=== PATIENT | male | born 1990 | race African-American/Black ===

== ENCOUNTER 2019-05-09 04:48 | Emergency (ER) | payer SELFPAY ==
--- NOTE | ~2019-05-09 | CT_ITS ---
EXAMINATION: CT brain wo con DATE: 05/09/2019 06:26 INDICATION: Headache. TECHNIQUE: Computed tomography (CT) of the head was performed without intravenous contrast. The mA wa s adjusted according to patient size. Iterative reconstruction technique was employed. The dose-lengt h product was 605.33 mGy-cm. COMPARISON: None FINDINGS: There is no intracranial hemorrhage, acute infarction, or abnormal intracranial mass lesion . The ventricles are normal in size. There is mild mucosal thickening in the ethmoid sinuses. The mas toid air cells are normal. The orbits are normal. IMPRESSION: 1. Normal brain. Reviewed, dictated and finalized at location [facility]. [facility] IMPRESSION: 1. Normal brain.
[2019-05-09 04:59] VITALS: BP 139/82; PULSE 68; RESP 16; TEMP 36.9; O2SAT 100
--- NOTE | 2019-05-09 05:15 | ED.HA ---
HPI - Headache General Chief Complaint: Headache Stated Complaint: HICKS Time Seen by Provider: 05/09/19 04:49 Source: patient Mode of arrival: ambulatory Limitations: no limitations History of Present Illness HPI Narrative: Patient is a 28-year-old male who presents for evaluation of headache. Patient reports headache began 4 days ago Wednesday while he was lying on his couch. Patient states that the headache started as a dull, aching pain in the back of his head radiating to the front above his eyes, and now is focused mostly in his left eye. Pain is dull, aching in nature, sometimes sharp at times. He reports intermittent blurry vision, nausea without vomiting, sensitivity to light. Patient has a history of migraine headaches in the past, but has never received head imaging. He denies numbness, does report some mild difficulty with walking due to dizziness. No chest pain, palpitations or abdominal pain. No recent medication changes. Patient denies taking any medication at home for the pain. Related Data Allergies Allergy/AdvReac Type Severity Reaction Status Date / Time No Known Allergies Allergy Verified 05/09/19 05:24 Review of Systems Review of Systems: Narrative: CONSTITUTIONAL: Denies fever, chills. EYES: Intermittent blurry vision, no blurry vision currently ENT: Reports rhinorrhea today, mild sinus congestion, denies sore throat or ear pain CARDIOVASCULAR: Denies chest pain, palpitations, or edema. RESPIRATORY: Denies cough or dyspnea. GASTROINTESTINAL: Denies abdominal pain, reports nausea, denies vomiting or diarrhea GENITOURINARY: Denies dysuria or hematuria. SKIN: Denies rash or itching. MUSCULOSKELETAL: Denies back pain, joint pain, or myalgia. NEUROLOGIC: Reports headache, denies numbness or weakness PMFSH Surgical History Surgical History (Updated 05/09/19 @ 05:24 by Marcia Bryant MD) History of ankle surgery Social History Social History (Updated 05/09/19 @ 05:24 by Marcia Bryant MD) Smoking status: Current every day smoker Tobacco type: cigarettes Alcohol intake: current Drinks per week: 5 Substance use: current Substance use type: marijuana Living arrangements: with friend(s) Gender identity (if verbalized by the patient): Male Exam Narrative: Exam Narrative: GENERAL: Well-appearing, well-nourished, and in no acute distress. HEAD: Normocephalic, atraumatic. EYES: 2+ PERRLA and EOMI, no nystagmus. visual acuity: 20/25 OD, 20/25 OS, 20/25 OU ENT: Nares clear, no rhinorrhea or epistaxis. Mucous membranes moist. NECK: Supple. CHEST: Clear to auscultation. No respiratory distress. HEART: Regular rate and rhythm. No murmur heard. Normal peripheral pulses. ABDOMEN: Soft, nontender, nondistended, normal active bowel sounds. EXTREMITIES: Normal range of motion. No edema. SKIN: Warm, dry, no rash. NEURO: No focal deficits. Alert and oriented x3. Finger to nose intact bilaterally. EOMs intact without nystagmus. No facial droop/asymmetry noted bilaterally. Grimace intact. Intact sensation in face. Hearing intact bilaterally. Shoulder shrug intact. Strength 5/5 bilateral upper extremities. Strength 5/5 bilateral lower extremities. Reflexes 2+ patellar. Heel to chowdary intact bilaterally. Ambulatory with a narrow base, steady gait, no ataxia. Course Vital Signs Vital signs: Vital Signs Temperature 36.9 C 05/09/19 04:59 Pulse Rate 68 05/09/19 04:59 Respiratory Rate 16 05/09/19 04:59 Blood Pressure 139/82 05/09/19 04:59 Pulse Oximetry 100 05/09/19 04:59 Temperature 36.9 C 05/09/19 06:10 Pulse Rate 68 05/09/19 04:59 Respiratory Rate 16 05/09/19 04:59 Blood Pressure 139/82 05/09/19 04:59 Pulse Oximetry 100 05/09/19 04:59 MDM - Headache MDM Narrative Medical decision making narrative: The patient was evaluated in the emergency department for headache. Patient's headache pain was not sudden or maximal in onset. There are no focal deficits on exam.
[2019-05-09] MEDS: METOCLOPRAMIDE HCL INJ 10 MG/2 ML VIAL IV PUSH (05:40)
[2019-05-09] MEDS: SODIUM CHLORIDE 0.9% IV 1,000 ML 999 ML IV CONT (05:40)
[2019-05-09] MEDS: MAGNESIUM SULF 2 GM/WATER 50ML 2 GM/50 ML BAG IVPB (05:40)
[2019-05-09 05:41] LABS: Basophils Percent Auto 0.6 % (0.2-1.2); Eosinophils Percent Auto 1.2 % (0-4.4); Hematocrit 46.2 % (42.0-52.0); Hemoglobin 15.3 g/dL (14.0-18.0); Lymphocytes Percent Auto 41.5 % (18.3-44.2); Mean Corpuscular HGB Conc 33.1 g/dl (32-36); Mean Corpuscular Hemoglobin 29.7 pg (26-34); Mean Corpuscular Volume 89.7 fl (80-100); Mean Platelet Volume 11.3 fl (7.4-10.4); Monocytes Absolute Auto 0.6 K/mm3 (0.1-0.6); Monocytes Percent Auto 17.8 % (2.6-8.5); Neutrophils Absolute Auto 1.3 K/mm3 (1.3-6.7); Neutrophils Percent Auto 38.9 % (45.5-73.1); Platelet Count Result 149 k/mm3 (150-375); Red Blood Count 5.15 M/mm3 (4.6-6.20); Red Cell Distribution Width 12.5 % (11.5-14.5); White Blood Count 3.4 K/mm3 (4.5-10.0)
[2019-05-09 05:54] LABS: Blood Urea Nitrogen 9 mg/dL (9-20); Carbon Dioxide 30 mmol/L (22-30); Chloride 101 mmol/L (98-107); Estimated CRCL calculation 108 ml/min; Estimated Glomerular Filt Rate > 60; Glucose 121 mg/dL (75-110); Potassium 3.6 mmol/L (3.4-5.0); Sodium 139 mmol/L (137-145)
[2019-05-09 06:10] VITALS: BP 114/64; PULSE 67; RESP 14; TEMP 36.9; O2SAT 100
[2019-05-09 07:04] VITALS: BP 125/69; PULSE 68; RESP 16; TEMP 36.6; O2SAT 100
== END 2019-05-09 07:06 | disposition home or self-care (01) ==
PROVIDERS: Emergency Provider Emergency Medicine
DX: G43.909 Migraine, unspecified, not intractable, without status migrainosus (principal); F17.210 Nicotine dependence, cigarettes, uncomplicated
CPT/HCPCS: 36415; 70450; 80048; 85025; 96365; 96375; 99284; J0131; J1100; J1200; J2765; J3475; J7030